=== PATIENT | female | born 1955 | race African-American/Black ===

== ENCOUNTER 2019-05-31 10:52 | Outpatient (CLI) | payer MEDICARE ==
--- NOTE | 2019-05-31 11:59 | MMO ---
Bilateral MAMMO Bilat Screen [facility]. CLINICAL HISTORY: Patient is 63 years old and is seen for screening. The patient has no family history of breast cancer. The patient has no personal history of cancer. VIEWS: The views performed were: bilateral craniocaudal with tomosynthesis and bilateral mediolateral oblique with tomosynthesis. FILMS COMPARED: The present examination has been compared to prior imaging studies performed at [facility] on 03/05/2013, 06/04/2014, 02/09/2016 and 05/18/2017. This study has been interpreted with the assistance of computer-aided detection. MAMMOGRAM FINDINGS: There are scattered fibroglandular densities. There are no suspicious masses, suspicious calcifications, or new areas of architectural distortion. IMPRESSION: THERE IS NO MAMMOGRAPHIC EVIDENCE OF MALIGNANCY. A ROUTINE FOLLOW-UP MAMMOGRAM IN 1 YEAR IS RECOMMENDED. THE RESULTS OF THIS EXAM WERE SENT TO THE PATIENT. ACR BI-RADS Category 1 - Negative MAMMOGRAPHY NOTE: 1. A negative mammogram report should not delay a biopsy if a dominant of clinically suspicious mass is present. 2. Approximately 10% to 15% of breast cancers are not detected by mammography. 3. Adenosis and dense breasts may obscure an underlying neoplasm. Reported by: MYRA BENAVIDES MD Electonically Signed: [id number]
== END 2019-05-31 10:53 | disposition home or self-care (01) ==
LOC: BICMAMMO 10:52
DX: Z12.31 Encounter for screening mammogram for malignant neoplasm of breast (principal)
CPT/HCPCS: 77063; 77067

== ENCOUNTER 2019-06-04 10:14 | Outpatient (CLI) | payer MEDICARE ==
--- NOTE | 2019-06-04 14:05 | BD ---
BONE DENSITOMETRY USING DEXA: Date: 06/04/19 HISTORY: Postmenopausal screening for osteoporosis. FINDINGS: Lumbar Spine: BMD (g/cm2) L1 0.931 T-Score: -0.5 Z-Score: 0.4 L2 0.975 T-Score: -0.5 Z-Score: 0.6 L3 1.127 T-Score: 0.4 Z-Score: 1.5 L4 1.251 T-Score: 1.7 Z-Score: 2.9 L1-L4 1.067 T-Score: 0.2 Z-Score: 1.2 Femoral Neck: 0.612 T-Score: -2.1 Z-Score: -1.1 Total Femur: 0.752 T-Score: -1.6 Z-Score: -0.8 IMPRESSION: Osteopenia. POS: OFF
== END 2019-06-04 10:15 | disposition home or self-care (01) ==
LOC: BICMAMMO 10:14
PROVIDERS: ATTEND Family Medicine
DX: Z13.820 Encounter for screening for osteoporosis (principal); M85.859 Other specified disorders of bone density and structure, unspecified thigh
CPT/HCPCS: 77080

== ENCOUNTER 2019-08-26 07:03 | Outpatient (CLI) | payer MEDICARE ==
--- NOTE | 2019-08-26 07:55 | CT ---
EXAM: CT chest without contrast per low-dose cancer screening protocol HISTORY: History of smoking and nicotine dependence; greater than 40 year smoking history COMPARISON: None TECHNIQUE: Multiple contiguous axial images were obtained in a CT of the chest without contrast per l ow-dose cancer screening protocol. Sagittal and coronal reformats were performed. FINDINGS: Pulmonary nodules: There is a 3 to 4 mm nodule on image 87 of 228 in the superior aspect of the left lower lobe.. No focal infiltrates are seen. Pleural space: No pneumothorax or pleural effusion are seen. Heart: The heart is normal in size. Mediastinum: No hilar or mediastinal lymphadenopathy appreciated on this limited noncontrast examinat ion. Bones: Unremarkable. Visualized subdiaphragmatic structures: Unremarkable. IMPRESSION: Lung RADS category 2-benign. A follow-up low-dose chest CT in one year is recommended to ensure stabi lity.
== END 2019-08-26 07:04 | disposition home or self-care (01) ==
LOC: CT 07:03
PROVIDERS: ATTEND Family Medicine
DX: F17.210 Nicotine dependence, cigarettes, uncomplicated (principal)
CPT/HCPCS: 36415; 80053; 80061; 83970; 85025; G0297

== ENCOUNTER 2020-07-01 08:00 | Outpatient (CLI) | payer MEDICARE ==
--- NOTE | 2020-07-01 08:38 | MMO ---
Bilateral MAMMO Bilat Screen [facility]. CLINICAL HISTORY: Patient is 64 years old and is seen for screening. The patient has no family history of breast cancer. The patient has no personal history of cancer. VIEWS: The views performed were: bilateral craniocaudal with tomosynthesis and bilateral mediolateral oblique with tomosynthesis. FILMS COMPARED: The present examination has been compared to prior imaging studies performed at [facility] on 06/04/2014, 02/09/2016, 05/18/2017 and 05/31/2019. This study has been interpreted with the assistance of computer-aided detection. MAMMOGRAM FINDINGS: There are scattered fibroglandular densities. There are no suspicious masses, suspicious calcifications, or new areas of architectural distortion. IMPRESSION: THERE IS NO MAMMOGRAPHIC EVIDENCE OF MALIGNANCY. A ROUTINE FOLLOW-UP MAMMOGRAM IN 1 YEAR IS RECOMMENDED. THE RESULTS OF THIS EXAM WERE SENT TO THE PATIENT. ACR BI-RADS Category 1 - Negative MAMMOGRAPHY NOTE: 1. A negative mammogram report should not delay a biopsy if a dominant of clinically suspicious mass is present. 2. Approximately 10% to 15% of breast cancers are not detected by mammography. 3. Adenosis and dense breasts may obscure an underlying neoplasm. Reported by: MYRA BENAVIDES MD Electonically Signed: [id number]
== END 2020-07-01 08:01 | disposition home or self-care (01) ==
LOC: BICMAMMO 08:00
PROVIDERS: ATTEND Family Medicine
DX: Z12.31 Encounter for screening mammogram for malignant neoplasm of breast (principal)
CPT/HCPCS: 77063; 77067

== ENCOUNTER 2020-09-22 13:39 | Outpatient (CLI) | payer MEDICARE ==
--- NOTE | 2020-09-22 13:57 | CT ---
SINUS CT WITHOUT CONTRAST: HISTORY: Two years of chronic sinusitis. Pressure in the frontal scalp. COMPARISON: None. FINDINGS: Visualized brain parenchyma demonstrates appropriate attenuation. Bilateral ocular lenses are appropriately located. Both globes are intact. Retrobulbar fat is preserv ed. Symmetric attenuation of the optic nerves and ocular rectus muscles. Visualized oral cavity is grossly unremarkable. Dental amalgam artifact limits evaluation for inflamm atory change. Visualized maxilla and mandible do not demonstrate any acute abnormality. Pterygoid plates are intact. Visualized upper cervical spine is unremarkable. Adequate aeration of the visualized mastoid air cells. Adequate aeration of the frontal sinuses, ethmoid air cells, sphenoid sinuses and maxillary sinuses. Bilateral ostiomeatal complexes are patent. Mild rightward deviation of an intact nasal septum With regards to the osseous margins of the sinuses there are no erosive or destructive changes. No ev idence of hypertrophy. IMPRESSION: No CT evidence of sinus disease. Transcribed Date/Time: 09/22/2020 2:02 PM
== END 2020-09-22 13:40 | disposition home or self-care (01) ==
LOC: BICCT 13:39
PROVIDERS: ATTEND Family Medicine
DX: J32.0 Chronic maxillary sinusitis (principal)

== ENCOUNTER 2020-12-24 06:57 | Outpatient (CLI) | payer MEDICARE | END 2020-12-24 06:58 | disposition home or self-care (01) | LOC: BICULT 06:57 | PROVIDERS: ATTEND Family Medicine | DX: Z13.6 Encounter for screening for cardiovascular disorders (principal); Z12.2 Encounter for screening for malignant neoplasm of respiratory organs; I73.9 Peripheral vascular disease, unspecified; F17.219 Nicotine dependence, cigarettes, with unspecified nicotine-induced disorders; I70.201 Unspecified atherosclerosis of native arteries of extremities, right leg; I70.202 Unspecified atherosclerosis of native arteries of extremities, left leg | CPT/HCPCS: 76775; 93923 ==

== ENCOUNTER 2021-02-01 10:44 | Outpatient (CLI) | payer MEDICARE | END 2021-02-01 10:45 | disposition home or self-care (01) | LOC: BICCT 10:44 | PROVIDERS: ATTEND Family Medicine | DX: Z12.2 Encounter for screening for malignant neoplasm of respiratory organs (principal); F17.210 Nicotine dependence, cigarettes, uncomplicated | CPT/HCPCS: 71271 ==

== ENCOUNTER 2021-02-12 07:46 | Outpatient (CLI) | payer MEDICARE | END 2021-02-12 07:47 | disposition home or self-care (01) | LOC: PET 07:46 | PROVIDERS: ATTEND Family Medicine | DX: R91.1 Solitary pulmonary nodule (principal) | CPT/HCPCS: 78815; A9552 ==

== ENCOUNTER 2021-12-29 14:23 | Outpatient (CLI) | payer MEDICARE | END 2021-12-29 14:24 | disposition home or self-care (01) | LOC: BICMAMMO 14:23 | PROVIDERS: ATTEND Family Medicine | DX: Z13.820 Encounter for screening for osteoporosis (principal); N95.9 Unspecified menopausal and perimenopausal disorder; M81.0 Age-related osteoporosis without current pathological fracture; M85.88 Other specified disorders of bone density and structure, other site | CPT/HCPCS: 77080 ==

== ENCOUNTER 2022-01-20 12:01 | Outpatient (CLI) | payer MEDICARE | END 2022-01-20 12:02 | disposition home or self-care (01) | LOC: RAD 12:01 | PROVIDERS: ATTEND Thoracic Surgery (Cardiothoracic Vascular Surgery) | DX: C34.32 Malignant neoplasm of lower lobe, left bronchus or lung (principal) | CPT/HCPCS: 71046 ==

== ENCOUNTER 2022-09-28 09:50 | Outpatient (CLI) | payer MEDICARE, OTHER | END 2022-09-28 09:51 | disposition home or self-care (01) | LOC: BICMAMMO 09:50 | PROVIDERS: ATTEND Family Medicine | DX: Z12.31 Encounter for screening mammogram for malignant neoplasm of breast (principal) | CPT/HCPCS: 77063; 77067 ==

== ENCOUNTER 2024-03-27 08:15 | Outpatient (CLI) | payer OTHER | END 2024-03-27 08:16 | disposition home or self-care (01) | LOC: BICMAMMO 08:15 | PROVIDERS: ATTEND Family Medicine | DX: Z12.31 Encounter for screening mammogram for malignant neoplasm of breast (principal); Z13.820 Encounter for screening for osteoporosis; E55.9 Vitamin D deficiency, unspecified; Z78.0 Asymptomatic menopausal state; N63.25 Unspecified lump in the left breast, overlapping quadrants; M81.0 Age-related osteoporosis without current pathological fracture | CPT/HCPCS: 77063; 77067; 77080 ==

== ENCOUNTER 2025-06-27 12:28 | Outpatient (CLI) | payer OTHER | END 2025-06-27 12:29 | disposition home or self-care (01) | LOC: BICMAMMO 12:28 | PROVIDERS: ATTEND Family Medicine | DX: Z12.31 Encounter for screening mammogram for malignant neoplasm of breast (principal); Z85.118 Personal history of other malignant neoplasm of bronchus and lung | CPT/HCPCS: 77063; 77067 ==